=== PATIENT | male | born 1985 | race Caucasian/White ===

== ENCOUNTER 2016-12-22 22:52 | Emergency (ER) | payer SELFPAY ==
--- NOTE | ~2016-12-22 | ER ---
ADMIT: 12/22/2016 RM/LOC: ER [facility] MR#: [id number] [address] [id number] HARRIET RAMESH [address] [place] [address] Emergency Room Report SEX: M AGE: 31 : 1985 DATE: 12/22/2016 SUBJECTIVE: A 31-year-old, brought by the Paramedics, apparently had been wandering the streets, knocking on random house doors, asked to be sent to the Emergency Department. The patient was somewhat agitated and uncooperative. However, he did admit to using methamphetamine. See T-sheet for remainder of history and physical. He refused an IV. He refused any lab work. Subsequently, he got up and left. DIAGNOSIS: Meth abuse. Encouraged to go to [facility] and stop using meth. Anil Luevano MD/ mary JOB #: [id number] CC: Kaiden Edgar MD, Attending Physician Sandee Hernandez MD, Family Physician
== END 2016-12-22 23:45 | disposition home or self-care (01) ==
LOC: ER 22:52
DX: F15.10 Other stimulant abuse, uncomplicated (principal)